=== PATIENT | female | born 1985 | race Caucasian/White ===

== ENCOUNTER 2023-09-13 13:56 | Emergency (ER) | payer OTHER ==
[2023-09-13] MEDS ORDERED: ASPIRIN 81 MG PO STA (15:41)
[2023-09-13] MEDS ORDERED: MAG HYDROX/AL HYDROX/SIMETH 30 ML, HYOSCYAMINE ELIXIR 10 ML, LIDOCAINE 2% GLYDO JELLY 1... PO STA ×3 (15:41)
[2023-09-13] MEDS ORDERED: SODIUM CHLORIDE 0.9% 1,000 ML IV STA (15:41)
[2023-09-13] MEDS ORDERED: KETOROLAC 15 MG/ML 1 ML VIAL IVP STA (15:41)
--- NOTE | 2023-09-13 15:45 | XR ---
EXAMINATION TYPE: XR chest 2V DATE OF EXAM: 09/13/2023 COMPARISON: None HISTORY: 38-year-old female with chest pain TECHNIQUE: PA and lateral views FINDINGS: Heart normal size. Aorta and pulmonary vasculature within normal limits. Interstitial prominence and peribronchial cuffing. No olayinka consolidation or pleural effusion. IMPRESSION: Possible COPD. Clinically correlate. Interstitial density and peribronchial cuffing suggests bronchit is, asthma, or atypical pneumonias. No focal infiltrate seen.
[2023-09-13 15:57] LABS: Basophils % (A) 1 %; Eosinophils # (A) 0.2 k/uL (0-0.7); Eosinophils % (A) 3 %; HCT 31.5 % (34.0-46.0); HGB 10.3 gm/dL (11.4-16.0); Lymphocytes # (A) 1.2 k/uL (1.0-4.8); Lymphocytes % (A) 22 %; MCH 30.6 pg (25.0-35.0); MCHC 32.8 g/dL (31.0-37.0); MCV 93.3 fL (80.0-100.0); Monocytes # (A) 0.4 k/uL (0-1.0); Monocytes % (A) 7 %; Neutrophils # (A) 3.5 k/uL (1.3-7.7); Neutrophils % (A) 65 %; Platelet Count 349 k/uL (150-450); RBC 3.38 m/uL (3.80-5.40); RDW 12.2 % (11.5-15.5); WBC 5.3 k/uL (3.8-10.6)
[2023-09-13 16:15] LABS: Prothrombin Time 10.8 sec (10.0-12.5)
[2023-09-13 16:18] LABS: ALT 21 U/L (4-34); AST 25 U/L (14-36); African American GFR (CKD) >90 (>60 ml/min/1.73 sqM); Albumin 3.2 g/dL (3.5-5.0); Alkaline Phosphatase 45 U/L (38-126); Anion Gap 7 mmol/L; Blood Urea Nitrogen 15 mg/dL (7-17); Calcium 8.7 mg/dL (8.4-10.2); Carbon Dioxide 23 mmol/L (22-30); Chloride 110 mmol/L (98-107); Glucose 73 mg/dL (74-99); Non-African American GFR(CKD) >90 (>60 ml/min/1.73 sqM); Potassium 4.4 mmol/L (3.5-5.1); Sodium 140 mmol/L (137-145); Total Bilirubin 0.9 mg/dL (0.2-1.3)
--- NOTE | 2023-09-13 17:49 | CT ---
EXAMINATION TYPE: CT chest angio for PE CT DLP: 245.9 mGycm, Automated exposure control for dose reduction was used. DATE OF EXAM: 09/13/2023 5:12 PM COMPARISON: None CLINICAL INDICATION:Female, 38 years old with history of eval for PE; chest pain and elevated d-dimer TECHNIQUE/CONTRAST: CTA scan of the thorax is performed with IV Contrast, patient injected with 65ml mL of Isovue 370, MD P images are created and reviewed these are created on a separate workstation.. FINDINGS: Pulmonary Artery: There is no evidence for a filling defect within the pulmonary vasculature to sugge st acute pulmonary embolism. The pulmonary artery is of normal size. Lungs/Pleura: No evidence of focal consolidation, pleural effusion or pneumothorax. Few reticular air space opacities in left lower lobe posteriorly. Airway: Large airways are patent. Heart: Heart is within normal limits for size. Vasculature: No evidence of aortic aneurysm. Mediastinum: No gross evidence of adenopathy. Small to moderate hiatal hernia. There is thickening of the distal esophagus up tor 12 mm. Musculoskeletal: No acute osseous abnormalities Soft Tissues: Unremarkable. Lower neck: No significant findings. Upper Abdomen: Lesion within the liver measuring 18 mm measuring -71 Hounsfield units. IMPRESSION: 1. No evidence of pulmonary embolism. 2. Left lower lobe posterior airspace opacities correlate for atypical infection which could be minim al. 3. Distal esophageal wall thickening with postsurgical changes gastric lumen correlate for esophagiti s. 4. Consider evaluation for Suspected fatty lesion within the liver. Further evaluation with MRI liver mass protocol recommended.
--- NOTE | 2023-09-13 18:33 | US ---
EXAMINATION TYPE: US venous doppler duplex LE BI DATE OF EXAM: 09/13/2023 4:59 PM COMPARISON: NONE CLINICAL INDICATION: Female, 38 years old with history of eval for dvt; Chest pain today. No hx of DV T. Not on blood thinners SIDE PERFORMED: Bilateral TECHNIQUE: The lower extremity deep venous system is examined utilizing real time linear array sonog damaris with graded compression, doppler sonography and color-flow sonography. VESSELS IMAGED: Common Femoral Vein Deep Femoral Vein Greater Saphenous Vein * Femoral Vein Popliteal Vein Small Saphenous Vein * Proximal Calf Veins (* superficial vessels) Right Leg: No evidence for DVT Left Leg: No evidence for DVT IMPRESSION: Grayscale, color doppler, spectral doppler imaging performed of the deep veins of the lo wer extremities. There is normal flow, compressibility, vascular waveforms.
--- NOTE | 2023-09-13 19:35 | ED ---
General Adult HPI - General Chief complaint: Chest Pain Stated complaint: Chest Pain Time Seen by Provider: 09/13/23 15:35 Source: patient, RN notes reviewed, old records reviewed Mode of arrival: ambulatory Limitations: no limitations - History of Present Illness Initial comments: Patient is a 30-year-old female presents emergency Department complaining of chest pain. States it started sometime earlier today or last night. Describes his right upper chest pain somewhat near the sternum with occasional radiation towards the right shoulder. His recent history of attempted overdose on Wellbutrin was intubated however has been doing well and has been at [facility] [place] for meth since August 25. Denies any fevers, cough. Denies any dyspnea. Denies any emesis but does endorse nausea. Denies diarrhea or abdominal pain. Has a difficult time describing the pain. No cardiac history. Presents for further evaluation at this time. I evaluated the patient when she was placed in a room. - Related Data Home Medications Medication Instructions Recorded Confirmed Acetaminophen Tab [Tylenol] 650 mg PO Q4H PRN 09/13/23 09/13/23 Calcium/Magnesium/Zinc/Vitamin D 1 tab PO TID PRN 09/13/23 09/13/23 334/134/5mg FLUoxetine HCL [PROzac] 20 mg PO DAILY 09/13/23 09/13/23 Ibuprofen [Motrin Ib] 600 mg PO Q6H PRN 09/13/23 09/13/23 Mirtazapine 15 mg PO HS 09/13/23 09/13/23 Pantoprazole [Protonix] 40 mg PO BID 09/13/23 09/13/23 ondansetron HCL [Zofran] 8 mg PO Q6H PRN 09/13/23 09/13/23 Previous Rx's Medication Instructions Recorded Mag Hydrox/Al Hydrox/Simeth 30 ml PO TID PRN #700 ml 09/13/23 [Maalox] Allergies Allergy/AdvReac Type Severity Reaction Status Date / Time metronidazole [From Flagyl] Allergy Rash/Hives Verified 09/13/23 18:09 topiramate [From Topamax] AdvReac "Blurred Verified 09/13/23 18:09 Vision" Review of Systems ROS Statement: Those systems with pertinent positive or pertinent negative responses have been documented in the HPI. Review of Systems: CONST: Denies fever EYES: Denies blurry vision ENT: Denies nasal congestion C/V: Endorses chest pain RESP: Denies shortness of breath GI: Denies abdominal pain : Denies dysuria SKIN: Denies rash. MSK: Denies joint pain. NEURO: Denies headache ROS Other: All systems not noted in ROS Statement are negative. Past Medical History History of Any Multi-Drug Resistant Organisms: None Reported Past Surgical History: Section, Hernia Repair Additional Past Surgical History / Comment(s): gastric sleeve. Past Psychological History: Anxiety, Depression Smoking Status: Never smoker Past Alcohol Use History: None Reported Past Drug Use History: Methamphetamine General Exam - General Exam Comments Initial Comments: General: Appears in no acute distress. HEAD: Normal with no signs of head trauma. EYES: PERRLA, EOMI, conjunctiva normal, no discharge. ENT: Hearing grossly intact, normal oropharynx. RESPIRATORY: Clear breath sounds bilaterally. No wheezes, rales, or rhonchi. C/V: Regular rate and rhythm. S1 and S2 auscultated, no edema, peripheral pulses 2+ and intact throughout ABD: Abd is soft, nontender, nondistended EXT: Normal range of motion, no obvious deformity SKIN: No rashes or lesions observed on exposed skin. NEURO: Alert and oriented 4. Limitations: no limitations Course Vital Signs 09/13/23 09/13/23 09/13/23 14:15 14:36 15:30 Pulse Rate 80 74 Pulse Rate [ 90 Right Supine Pulse Oximetery ] Respiratory 18 16 Rate Blood Pressure 101/72 91/59 O2 Sat by Pulse 100 97 Oximetry 09/13/23 09/13/23 09/13/23 16:30 17:30 18:30 Pulse Rate 69 85 68 Pulse Rate [ Right Supine Pulse Oximetery ] Respiratory 16 16 16 Rate Blood Pressure 95/66 119/79 97/66 O2 Sat by Pulse 98 100 99 Oximetry 09/13/23 19:37 Pulse Rate 74 Pulse Rate [ Right Supine Pulse Oximetery ] Respiratory 18 Rate Blood Pressure 105/70 O2 Sat by Pulse 97 Oximetry Medical Decision Making - Medical Decision Making Was pt. sent in by a medical professional or institution (, PA, TALENT COORDINATOR, urgent care, hospital, or intermediate...) When possible be specific @ -Sent from [facility] for evaluation. Did you speak to anyone other than the patient for history (EMS, parent, family, police, friend...)? What history was obtained from this source @ -No Did you review nursing and triage notes (agree or disagree)? Why? @ -I reviewed and agree with nursing and triage notes Were old charts reviewed (outside hosp., previous admission, EMS record, old EKG, old radiological studies, urgent care reports/EKG's, intermediate records)? Report findings @ -No old charts were reviewed Differential Diagnosis (chest pain, altered mental status, abdominal pain women, abdominal pain men, vaginal bleeding, weakness, fever, dyspnea, syncope, headache, dizziness, GI bleed, back pain, seizure, CVA, palpatations, mental health, musculoskeletal)? @ -Differential Chest Pain: Stable Angina, Unstable Angina, STEMI, NSTEMI Aortic Dissection, Pneumothorax, Musculoskeletal, Esophageal Spasm GERD, Cholecystitis, Pancreatitis, Zoster, this is not meant to be an all-inclusive list. EKG interpreted by me (3pts min.). @ -As above X-rays interpreted by me (1pt min.). @ -Chest xRay reveals no obvious acute cardio pulmonary process. CT interpreted by me (1pt min.). @ -CT angiogram reveals esophagitis but no evidence of pulmonary embolism. U/S interpreted by me (1pt. min.). @ -Duplex ultrasounds negative for DVT. What testing was considered but not performed or refused? (CT, X-rays, U/S, labs)? Why? @ -None What meds were considered but not given or refused? Why? @ -None Did you discuss the management of the patient with other professionals (professionals i.e. , PA, TALENT COORDINATOR, lab, RT, psych nurse, social science teacher, information systems coordinator, teacher, aoc plans intelligence officer, oil field caser)? Give summary @ -No Was smoking cessation discussed for >3mins.? @ -No Was critical care preformed (if so, how long)? @ -No Were there social determinants of health that impacted care today? How? (Homelessness, low income, unemployed, alcoholism, drug addiction, transportation, low edu. Level, literacy, decrease access to med. care, [place] [facility], rehab)? @ -No Was there de-escalation of care discussed even if they declined (Discuss DNR or withdrawal of care, Hospice)? DNR status @ -No What co-morbidities impacted this encounter? (DM, HTN, Smoking, COPD, CAD, Cancer, CVA, ARF, Chemo, Hep., AIDS, mental health diagnosis, sleep apnea, morbid obesity)? @ -None Was patient admitted / discharged? Hospital course, mention meds given and route, prescriptions, significant lab abnormalities, going to OR and other pertinent info. @ -Based on the patient's presentation and physical exam, presents with an atypical type chest pain. No cardiac history. We will obtain cardiopulmonary labs. Patient will be given an aspirin as well as Toradol, GI cocktail, 1 L fluid bolus. Attempted nitroglycerin tablets prior to arrival with no effect on pain. Vital signs within acceptable limits. EKG showed no signs of acute ischemia. Chest x-ray unremarkable. Labs remarkable for a mild anemia. Patient has a slightly elevated d-dimer 0.71 we'll obtain venous duplex ultrasounds as well as CT angiogram. Troponin undetectable. After the patient. We will obtain venous duplex ultrasounds as well as CT trey ogram to evaluate for PE. Discussed admission versus discharge the patient would like to go home with possible. She is feeling improved in terms of her chest pain after the GI cocktail. I was in agreement with this plan. Repeat troponin undetectable. CT negative for PE but does show esophagitis which did expand her symptoms. Based reports ultrasound negative for DVT. I did discuss the results with the patient. She'll be discharged home at this time. Strict return precautions discussed. Symptoms likely secondary to esophagitis. Recommended Maalox as well as other antiacids. She was in agreement this plan. I will provide the patient with a prescription for Maalox. I instructed the patient to follow up with their PCP in the next 1-3 days. I explained that the patient should return to the emergency department if they experience any worsening symptoms. Strict return precautions were discussed with the patient. The patient expressed understanding of these instructions. I answered all questions that the patient had. The patient was discharged home in good conditio n with their prescriptions and follow up information. Undiagnosed new problem with uncertain prognosis? @ -No Drug Therapy requiring intensive monitoring for toxicity (Heparin, Nitro, Insulin, Cardizem)? @ -No Were any procedures done? @ -No Diagnosis/symptom? @ -Atypical chest pain, esophagitis Acute, or Chronic, or Acute on Chronic? @ -Acute Uncomplicated (without systemic symptoms) or Complicated (systemic symptoms)? @ -Uncomplicated Side effects of treatment? @ -No Exacerbation, Progression, or Severe Exacerbation? @ -No Poses a threat to life or bodily function? How? (Chest pain, [place], [place], pneumonia, PE, COPD, DKA, ARF, appy, cholecystitis, CVA, Diverticulitis, Homicidal, Suicidal, threat to staff... and all critical care pts) @ -No - Lab Data Result diagrams: 09/13/23 15:13 09/13/23 15:13 Lab Results 09/13/23 09/13/23 09/13/23 Range/Units 15:13 15:13 15:13 WBC 5.3 (3.8-10.6) k/uL RBC 3.38 L (3.80-5.40) m/uL Hgb 10.3 L (11.4-16.0) gm/dL Hct 31.5 L (34.0-46.0) % MCV 93.3 (80.0-100.0) fL MCH 30.6 (25.0-35.0) pg MCHC 32.8 (31.0-37.0) g/dL RDW 12.2 (11.5-15.5) % Plt Count 349 (150-450) k/uL MPV 8.0 Neutrophils % 65 % Lymphocytes % 22 % Monocytes % 7 % Eosinophils % 3 % Basophils % 1 % Neutrophils # 3.5 (1.3-7.7) k/uL Lymphocytes # 1.2 (1.0-4.8) k/uL Monocytes # 0.4 (0-1.0) k/uL Eosinophils # 0.2 (0-0.7) k/uL Basophils # 0.0 (0-0.2) k/uL PT 10.8 (10.0-12.5) sec INR 1.0 (<1.2) APTT 22.0 (22.0-30.0) sec D-Dimer 0.71 H (<0.60) mg/L FEU Sodium 140 (137-145) mmol/L Potassium 4.4 (3.5-5.1) mmol/L Chloride 110 H (98-107) mmol/L Carbon Dioxide 23 (22-30) mmol/L Anion Gap 7 mmol/L BUN 15 (7-17) mg/dL Creatinine 0.53 (0.52-1.04) mg/dL Est GFR (CKD-EPI)AfAm >90 (>60 ml/min/1.73 sqM) Est GFR (CKD-EPI)NonAf >90 (>60 ml/min/1.73 sqM) Glucose 73 L (74-99) mg/dL Calcium 8.7 (8.4-10.2) mg/dL Magnesium 2.0 (1.6-2.3) mg/dL Total Bilirubin 0.9 (0.2-1.3) mg/dL AST 25 (14-36) U/L ALT 21 (4-34) U/L Alkaline Phosphatase 45 (38-126) U/L Troponin I (0.000-0.034) ng/mL Total Protein 6.0 L (6.3-8.2) g/dL Albumin 3.2 L (3.5-5.0) g/dL 09/13/23 09/13/23 Range/Units 15:13 18:15 WBC (3.8-10.6) k/uL RBC (3.80-5.40) m/uL Hgb (11.4-16.0) gm/dL Hct (34.0-46.0) % MCV (80.0-100.0) fL MCH (25.0-35.0) pg MCHC (31.0-37.0) g/dL RDW (11.5-15.5) % Plt Count (150-450) k/uL MPV Neutrophils % % Lymphocytes % % Monocytes % % Eosinophils % % Basophils % % Neutrophils # (1.3-7.7) k/uL Lymphocytes # (1.0-4.8) k/uL Monocytes # (0-1.0) k/uL Eosinophils # (0-0.7) k/uL Basophils # (0-0.2) k/uL PT (10.0-12.5) sec INR (<1.2) APTT (22.0-30.0) sec D-Dimer (<0.60) mg/L FEU Sodium (137-145) mmol/L Potassium (3.5-5.1) mmol/L Chloride (98-107) mmol/L Carbon Dioxide (22-30) mmol/L Anion Gap mmol/L BUN (7-17) mg/dL Creatinine (0.52-1.04) mg/dL Est GFR (CKD-EPI)AfAm (>60 ml/min/1.73 sqM) Est GFR (CKD-EPI)NonAf (>60 ml/min/1.73 sqM) Glucose (74-99) mg/dL Calcium (8.4-10.2) mg/dL Magnesium (1.6-2.3) mg/dL Total Bilirubin (0.2-1.3) mg/dL AST (14-36) U/L ALT (4-34) U/L Alkaline Phosphatase (38-126) U/L Troponin I <0.012 <0.012 (0.000-0.034) ng/mL Total Protein (6.3-8.2) g/dL Albumin (3.5-5.0) g/dL - EKG Data -: EKG Interpreted by Me EKG Comments: 12-lead Electrocardiogram Interpretation Note EKG was reviewed and interpreted by myself. 12-lead ECG performed at 1410 is interpreted by me as revealing normal sinus rhythm at a rate of 84 beats per minute. Broseley is normal. RI interval is 152 ms, QRS duration is 82 ms, QTc is 414 ms.. There were no ST or T wave abnormalities to suggest myocardial ischemia or injury. R wave progression across the precordium was satisfactory. By my interpretation this EKG is non-diagnostic for acute ischemia. Disposition Clinical Impression: Atypical chest pain, Esophagitis Disposition: HOME SELF-CARE Condition: Good Instructions (If sedation given, give patient instructions): Esophagitis (ED) Prescriptions: Mag Hydrox/Al Hydrox/Simeth [Maalox] 30 ml PO TID PRN #700 ml PRN Reason: Dyspepsia Is patient prescribed a controlled substance at d/c from ED?: No Referrals: None,Stated [Primary Care Provider] - 1-2 days Jennifer Parry MD [STAFF PHYSICIAN] - 1-2 days Time of Disposition: 19:22
[2023-09-13 19:57] VITALS: BP 105/70; PULSE 74; RESP 18
== END 2023-09-13 19:52 | disposition home or self-care (01) ==
LOC: EC 13:56
DX: K20.90 Esophagitis, unspecified without bleeding (principal); R07.89 Other chest pain; F32.A Depression, unspecified; F41.9 Anxiety disorder, unspecified; Z79.899 Other long term (current) drug therapy; Z88.1 Allergy status to other antibiotic agents; Z88.8 Allergy status to other drugs, medicaments and biological substances
CPT/HCPCS: 36415; 93005; 85379; 80053; 83735; 84484; 85025; 85610; 85730; 71046; 93970; 71275; 99285; 96374; 96361; J1885; Q9967